=== PATIENT | male | born 1965 | race Caucasian/White ===

== ENCOUNTER 2017-11-29 23:53 | Emergency (ER) | payer MEDICAID ==
[~2017-11-29] VITALS: Ht 185.4 cm; Wt 94.1 kg
[~2017-11-29 23:53] MED LIST: ESCI10TA PO
[2017-11-30 03:04] LABS: CLARITY,URINE Clear (Clear); COLOR,URINE Yellow (Yellow); GLUCOSE, URINE Negative (Neg); KETONES,URINE Negative (Neg); LEUKOCYTE ESTERASE ,URINE Negative (Neg); NITRITES, URINE Negative (Neg); OCCULT BLOOD,URINE Negative (Neg); PH,URINE 5.5 (4.8-8.0); PROTEIN,URINE Negative (Neg); UROBILINOGEN,URINE 0.2 E.U/dL (0.2-1.0)
[2017-11-30 03:29] LABS: UA COLLECTION TYPE VOIDED
[2017-11-30 04:51] VITALS: BP 111/62
== END 2017-11-30 05:00 | disposition home or self-care (01) ==
LOC: ER 23:54
DX: F23 Brief psychotic disorder (principal); F32.9 Major depressive disorder, single episode, unspecified; G89.29 Other chronic pain; E86.0 Dehydration; Z79.899 Other long term (current) drug therapy
CPT/HCPCS: 81003; 82948; 99283; 99284

== ENCOUNTER 2019-01-04 10:01 | Emergency (ER) | payer MEDICAID, MEDICARE ==
[~2019-01-04] VITALS: Ht 182.9 cm; Wt 82.0 kg
[2019-01-04 11:06] VITALS: BP 133/73
== END 2019-01-04 11:08 | disposition home or self-care (01) ==
LOC: ER 10:01
DX: G89.29 Other chronic pain (principal); M54.9 Dorsalgia, unspecified; K59.00 Constipation, unspecified; F32.9 Major depressive disorder, single episode, unspecified
CPT/HCPCS: 82948; 99283